=== PATIENT | female | born 1945 | race Caucasian/White ===

== ENCOUNTER → 2016-06-11 | Outpatient (CLI) | payer MEDICARE ==
--- NOTE | 2016-06-12 11:43 | MM ---
Reason for exam: screening (asymptomatic). Last mammogram was performed 1 year and 3 months ago. History: Patient is postmenopausal. Physical Findings: A clinical breast exam by your physician is recommended on an annual basis and results should be correlated with mammographic findings. MG 3D Screening Mammo W/Cad Bilateral CC and MLO view(s) were taken. Prior study comparison: March 23, 2015, bilateral MG 3d screening mammo w/cad. February 17, 2014, bilateral MG screening mammo w CAD. The breast tissue is almost entirely fat. No significant changes when compared with prior studies. ASSESSMENT: Benign, BI-RAD 2 RECOMMENDATION: Routine screening mammogram of both breasts in 1 year.
== END | disposition home or self-care (01) ==
LOC: RADMAMWWP 12:52
PROVIDERS: ATTEND Family Medicine
DX: Z12.31 Encounter for screening mammogram for malignant neoplasm of breast (principal)
CPT/HCPCS: 77063; G0202

== ENCOUNTER → 2017-10-23 | Outpatient (CLI) | payer MEDICARE ==
--- NOTE | 2017-10-28 12:56 | MM ---
Reason for exam: screening (asymptomatic). Last mammogram was performed 1 year and 4 months ago. History: Patient is postmenopausal. Physical Findings: A clinical breast exam by your physician is recommended on an annual basis and results should be correlated with mammographic findings. MG 3D Screening Mammo W/Cad Bilateral CC and MLO view(s) were taken. Prior study comparison: June 11, 2016, bilateral MG 3d screening mammo w/cad. March 23, 2015, bilateral MG 3d screening mammo w/cad. The breast tissue is heterogeneously dense. This may lower the sensitivity of mammography. There is chronic nodularity in the left breast inferior anterior aspect. There is no discrete abnormality. Prominent vessel left outer aspect redemonstrated. ASSESSMENT: Benign, BI-RAD 2 RECOMMENDATION: Routine screening mammogram of both breasts in 1 year.
== END | disposition home or self-care (01) ==
LOC: RADMAMWWP 10:55
PROVIDERS: ATTEND Family Medicine
DX: Z12.31 Encounter for screening mammogram for malignant neoplasm of breast (principal)
CPT/HCPCS: 77063; 77067

== ENCOUNTER → 2018-12-07 | Outpatient (CLI) | payer MEDICARE ==
--- NOTE | 2018-12-08 09:32 | MM ---
Reason for exam: screening (asymptomatic). Last mammogram was performed 1 year and 1 month ago. History: Patient is postmenopausal. Physical Findings: A clinical breast exam by your physician is recommended on an annual basis and results should be correlated with mammographic findings. MG 3D Screening Mammo W/Cad Bilateral CC and MLO view(s) were taken. Prior study comparison: October 23, 2017, bilateral MG 3d screening mammo w/cad. June 11, 2016, bilateral MG 3d screening mammo w/cad. New group of indeterminate microcalcifications upper outer quadrant left breast 9cm from nipple. This finding is changed when compared with previous exams. ASSESSMENT: Incomplete: need additional imaging evaluation, BI-RAD 0 RECOMMENDATION: Special view mammogram of the left breast. [facility] will attempt to contact patient to return for supplemental views.
== END ==
LOC: RADMAMWWP 10:43
PROVIDERS: ATTEND Family Medicine
DX: Z12.31 Encounter for screening mammogram for malignant neoplasm of breast (principal); R92.8 Other abnormal and inconclusive findings on diagnostic imaging of breast
CPT/HCPCS: 77063; 77067

== ENCOUNTER → 2018-12-14 | Outpatient (CLI) | payer MEDICARE ==
--- NOTE | 2018-12-15 11:43 | MM ---
Reason for exam: additional evaluation requested from abnormal screening. Last mammogram was performed less than 1 month ago. History: Patient is postmenopausal. Physical Findings: Nurse did not find any significant physical abnormalities on exam. MG 3D Work Up W/Cad LT CC with magnification, ML with magnification, and ML view(s) were taken of the left breast. Prior study comparison: December 07, 2018, bilateral MG 3d screening mammo w/cad. October 23, 2017, bilateral MG 3d screening mammo w/cad. There are scattered fibroglandular densities. There is a group of fine pleomorphic calcifications measuring 1.0cm in the left upper outer quadrant at middle depth. Biopsy recommended. Other benign left calcifications. These results were verbally communicated with the patient and result sheet given to the patient on 12/14/18. ASSESSMENT: Suspicious, BI-RAD 4 RECOMMENDATION: Stereotactic core biopsy of the left breast. Called with mammographic findings and has scheduled an appointment for the patient for 01/15/19 at 11:[address] Willoughby. PRELIMINARY REPORT CALLED AND FAXED TO DR. WILLOUGHBY ON 12/15/18.
== END | disposition home or self-care (01) ==
LOC: RADMAMWWP 09:58
PROVIDERS: ATTEND Family Medicine
DX: R92.8 Other abnormal and inconclusive findings on diagnostic imaging of breast (principal)
CPT/HCPCS: 77065; G0279; 77061

== ENCOUNTER → 2019-01-15 | Outpatient (CLI) | payer MEDICARE ==
[2019-01-15 11:45] VITALS: BP 168/86; PULSE 66; RESP 18; TEMP 97.6; BMI 31.6
--- NOTE | 2019-01-15 12:13 | P.GSHP ---
History of Present Illness H&P Date: 01/15/19 Chief Complaint: abnromal mammogram Swathi is a 73-year-old white female who had a routine screening mammogram on 12-07-18. This revealed an area of indeterminate microcalcifications upper outer quadrant of the left breast. Additional views of the left breast were performed on . This revealed a group of fine pleomorphic calcifications for which stereotactic core biopsy was recommended. The patient herself does not feel any lumps or masses in either breast. She does not complain of any nipple discharge or skin changes. She has not had any history of recent trauma or infection of the breast. She's never had surgery on either breast. Caffeine: 1 cup of coffee/day, smoke: none, and smokes occasionally Chocolate: daily Family History: mother: "female" cancer maternal grandmother: "female" cancer Hormonal History: menarche: 12 G0 menopause: 50 BCP: 10 years hormones: none Surgical history: 1. Bilateral hip transplant 2. Cholecystectomy 3. Tubal ligation Medical history: 1. HTN Social History: smoke: none alcohol: red wine daily drugs: none - Constitutional Constitutional: Denies chills, Denies fever - EENT Comment: billateral cataract, retina and cornea problems Eyes: right blurred vision, right decreased vision Ears: deny: decreased hearing, tinnitus Ears, nose, mouth and throat: Denies headache, Denies sore throat - Breasts Breasts: bilateral: as per HPI - Cardiovascular Cardiovascular: Reports high blood pressure - Respiratory Respiratory: Denies cough, Denies 7 - Gastrointestinal Gastrointestinal: Denies abdominal pain, Denies diarrhea, Denies nausea, Denies vomiting - Genitourinary (Female) Genitourinary: Denies dysuria, Denies hematuria - Menstruation Menstruation: Reports postmenopausal - Musculoskeletal Comment: arthritis - Integumentary Integumentary: Denies pruritus, Denies rash - Neurological Neurological: Denies numbness, Denies weakness - Psychiatric Psychiatric: Denies anxiety, Denies depression - Endocrine Comment: hypothyroid Endocrine: Denies fatigue, Denies weight change - Hematologic/Lymphatic Comment: none - Allergic/Immunologic Allergic/Immunologic: Reports as per HPI Past Medical History Past Medical History: Hypertension Additional Past Medical History / Comment(s): "periodic limp movement disorder", had blood in toilet, "prediabetic"-no rx , states has had cold symptoms- to call Dr Dan if not resolved History of Any Multi-Drug Resistant Organisms: None Reported Past Surgical History: Cholecystectomy, Joint Replacement, Tubal Ligation Additional Past Surgical History / Comment(s): fredo hip replacement Past Anesthesia/Blood Transfusion Reactions: No Reported Reaction Past Psychological History: Depression Smoking Status: Never smoker Past Alcohol Use History: Occasional Past Drug Use History: None Reported - Past Family History Mother Family Medical History: Cancer Brother(s) Family Medical History: Cancer Medications and Allergies Home Medications Medication Instructions Recorded Confirmed Type Hydrochlorothiazide 25 mg PO DAILY 03/16/14 01/15/19 History Levothyroxine Sodium [Synthroid] 100 mcg PO DAILY 03/16/14 01/15/19 History cloNIDine HCL [Catapres] 0.1 mg PO HS 03/16/14 01/15/19 History Cholecalciferol (Vitamin D3) 2,000 unit PO DAILY 01/15/19 01/15/19 History [Vitamin D3] Cyanocobalamin (Vitamin B-12) 1,000 mcg PO DAILY 01/15/19 01/15/19 History [Vitamin B-12] Lutein 10 mg PO DAILY 01/15/19 01/15/19 History Melatonin 3 mg PO HS 01/15/19 01/15/19 History [place]-3 Fatty Acids [[place]-3] 1,000 mg PO DAILY 01/15/19 01/15/19 History Allergies Allergy/AdvReac Type Severity Reaction Status Date / Time Penicillins Allergy Unknown Verified 01/15/19 11:44 Surgical - Exam Vital Signs Temp Pulse Resp BP Pulse Ox 97.6 F 66 18 168/86 97 01/15/19 11:41 01/15/19 11:41 01/15/19 11:41 01/15/19 11:41 01/15/19 11:41 BMI 31.6 - General well developed, well nourished, no distress - Eyes normal ocular movement - ENT normal pinna, no hearing loss, no congestion - Neck no masses, trachea midline, no lymphadectomy - Respiratory normal respiratory effort, clear to auscultation - Cardiovascular Rhythm: regular Heart Sounds: normal: S1, S2 - Abdomen normal bowel sounds Abdomen: soft, non tender, no guarding, no rigid, no rebound - Neurologic no disoriented, no combative - Musculoskeletal normal gait, normal posture - Psychiatric oriented to time, oriented to person, oriented to place, speech is normal, memory intact Breast examination: Right breast: Multiple positional exam is cystic changes, no dominant masses or nodules of concern Right axilla: No adenopathy of concern Left breast: Multi-positional exam no dominant masses or nodules of concern Left axilla: No adenopathy of concern Results Mammogram results reviewed Assessment and Plan Assessment: Impression: 1. Fibrocystic breast changes 2. Family history of cancer 3. Abnormal mammogram left breast 4. Arthritis/affecting ability to position patient on the stereotactic table, patient is had bilateral hip replacement 5. Hypertension Plan: 1. Serotactic core biopsy left breast 2. We will adjust the patient's bilateral hip replacement so that she may go on the stereotactic table 3. Follow-up after serotactic core biopsy Risks and benefits of procedure discussed with the patient and her friend. She understands and this was scheduled in the near future Cc: Dr. Abreu
== END | disposition home or self-care (01) ==
LOC: WWCWWP 10:44
PROVIDERS: ATTEND Surgery
DX: Z53.9 Procedure and treatment not carried out, unspecified reason (principal)

== ENCOUNTER → 2019-02-26 | Outpatient (CLI) | payer MEDICARE ==
[2019-02-26 09:37] VITALS: BP 153/70; PULSE 85; RESP 18; TEMP 98.2
--- NOTE | 2019-02-26 09:48 | P.PN ---
Subjective Progress Note Date: 02/26/19 Principal diagnosis: stero biopsy results Swathi is a 74-year-old white female status post sterotactic core biopsy of the left breast performed on [id number]. She tolerated the procedure without difficulty and has no complaints. Pathology revealed coarse calcifications associated with fibroadenomatous change. No evidence of cancer identified. The findings were felt to be concordant. Patient had xanax prior to procedure secondary to possible anxiety, HTN. She states she was very tired the rest of the day. She has arthritis which prohibited her from being able lay on the stero table here and thus the procedure was done on the 3D device at [facility]. Objective - Vital Signs Vital signs: Vital Signs Temp 98.2 F 02/26/19 09:35 Pulse 85 02/26/19 09:35 Resp 18 02/26/19 09:35 BP 153/70 02/26/19 09:35 Pulse Ox 97 02/26/19 09:35 Intake & Output 02/25/19 02/26/19 02/26/19 18:59 06:59 18:59 Weight 83.915 kg - Exam BMI 31.8 - Constitutional General appearance: Present: average body habitus - EENT Eyes: Present: EOMI ENT: Present: hearing grossly normal - Respiratory Respiratory: bilateral: CTA - Cardiovascular Rhythm: regular Heart sounds: normal: S1, S2 - Integumentary Integumentary Comment(s): Puncture site left lateral breast clean and dry No ecchymosis No evidence of any infection or hematoma Integumentary: Present: normal turgor - Musculoskeletal Musculoskeletal: Present: gait normal - Psychiatric Psychiatric: Present: A&O x's 3, appropriate affect, intact judgment & insight Assessment and Plan Assessment: Impression: 1. Fibroadenomatoid change left breast biopsy felt to be concordant with the mammogram findings 2. Family history of cancer 3. Arthritis/affect inability to position patient is stereotactic table patient therefore had a 3-D stereo biopsy done at [facility] 5. Patient had bilateral hip replacement. 6. Hypertension requiring patient to have Xanax prior to the procedure, patient states that after the procedure she was very tired for that day Plan: 1. Repeat left breast mammogram in 6 months 2. Bilateral mammogram in 1 year 3. Patient to call sooner if any questions of concern CC: Dr. Abreu Encounter about 15 minutes, > 50% planning and counselling Time with Patient: Less than 30
== END ==
LOC: WWCWWP 09:19
PROVIDERS: ATTEND Surgery
DX: Z53.9 Procedure and treatment not carried out, unspecified reason (principal)

== ENCOUNTER → 2020-03-30 | Outpatient (CLI) | payer MEDICARE ==
--- NOTE | 2020-03-31 11:40 | MM ---
Reason for exam: screening (asymptomatic). Last mammogram was performed 1 year and 3 months ago. History: Patient is postmenopausal. Excisional biopsy. Physical Findings: A clinical breast exam by your physician is recommended on an annual basis and results should be correlated with mammographic findings. MG 3D Screening Mammo W/Cad Bilateral CC and MLO view(s) were taken. Prior study comparison: December 14, 2018, left breast MG 3d work up w/cad LT. December 07, 2018, bilateral MG 3d screening mammo w/cad. There are scattered fibroglandular densities. Finding #1: Architectural distortion in the upper outer quadrant of the left breast. Finding #2: There are stable typically benign calcifications in both breasts. Previous mammotome biopsy in the left breast. There is a chronic nodularity in the left breast. ASSESSMENT: Incomplete: need additional imaging evaluation, BI-RAD 0 RECOMMENDATION: Special view mammogram of the left breast. If lesion persists on supplemental views, image directed ultrasound is recommended. [facility] will attempt to contact patient to return for supplemental views and ultrasound if indicated.
== END | disposition home or self-care (01) ==
LOC: RADMAMWWP 13:32
PROVIDERS: ATTEND Family Medicine
DX: Z12.31 Encounter for screening mammogram for malignant neoplasm of breast (principal)
CPT/HCPCS: 77063; 77067

== ENCOUNTER → 2020-04-04 | Outpatient (CLI) | payer MEDICARE ==
--- NOTE | 2020-04-04 14:45 | MM ---
Reason for exam: additional evaluation requested from abnormal screening. Last mammogram was performed less than 1 month ago. History: Patient is postmenopausal. Excisional biopsy, February 2019. Took hormonal contraceptives for 6 years beginning at age 23. Physical Findings: Nurse did not find any significant physical abnormalities on exam. MG 3D Work Up W/Cad LT Spot compression CC, spot compression MLO, and LM view(s) were taken of the left breast. Prior study comparison: March 30, 2020, bilateral MG 3d screening mammo w/cad. December 14, 2018, left breast MG 3d work up w/cad LT. There are scattered fibroglandular densities. Stable benign calcifications. There is no discrete abnormality including area of concern. No significant new findings when compared with previous films. These results were verbally communicated with the patient and result sheet given to the patient on 04/04/20. ASSESSMENT: Benign, BI-RAD 2 RECOMMENDATION: Return to routine screening mammogram schedule for both breasts.
== END | disposition home or self-care (01) ==
LOC: RADMAMWWP 13:33
PROVIDERS: ATTEND Family Medicine
DX: R92.8 Other abnormal and inconclusive findings on diagnostic imaging of breast (principal)
CPT/HCPCS: 77065; G0279; 77061

== ENCOUNTER → 2023-07-28 | Outpatient (CLI) | payer MEDICARE ==
--- NOTE | 2023-08-01 08:15 | MM ---
Reason for Exam: Screening (asymptomatic). Last mammogram was performed 1 year(s) and 3 month(s) ago. Patient History: Menarche at age 11. First Full-Term at age 22. Postmenopausal. Hormonal Contraceptives for 6 years from age 23 until age 29. 02/2019, Excisional Biopsy. Risk Values: Deyanira 5 year model risk: 1.8%. NCI Lifetime model risk: 3.0%. Prior Study Comparison: 03/30/2020 Bilateral Screening Mammogram, [facility]. 04/04/2020 Left Diagnostic Mammogram, [facility]. 04/22/2022 Bilateral MG 3D screening mammo w/cad, [facility]. Tissue Density: The breasts are almost entirely fatty. Findings: Analyzed By CAD. Right breast: There is no suspicious group of microcalcifications or new suspicious mass. Benign-appearing calcifications right breast. Left breast: There is no suspicious group of microcalcifications or new suspicious mass. Benign-appearing calcifications left breast. Overall Assessment: Benign, BI-RAD 2 Management: Screening Mammogram of both breasts in [address] [facility] will attempt to contact patient to return for supplemental views and ultrasound if indicated. Patient should continue monthly self-breast exams. A clinical breast exam by your physician is recommended on an annual basis. This exam should not preclude additional follow-up of suspicious palpable abnormalities. Note on Deyanira scores and lifetime risk: 1. A Deyanira score greater than 3% is considered moderate risk. If this is the case, consider specialist referral to assess eligibility for a risk reducing agent. 2. If overall lifetime risk for the development of breast cancer is 20% or higher, the patient may qualify for future screening with alternating mammogram and breast MRI. Electronically signed and approved by: Dinesh Charles DO
== END | disposition home or self-care (01) ==
LOC: RADMAMWWP 11:29
PROVIDERS: ATTEND Family Medicine
DX: Z12.31 Encounter for screening mammogram for malignant neoplasm of breast (principal); Z78.0 Asymptomatic menopausal state
CPT/HCPCS: 77063; 77067